=== PATIENT | male | born 1990 | race Caucasian/White ===

== ENCOUNTER 2023-10-30 21:16 | Emergency (ER) | payer OTHER ==
[~2023-10-30] VITALS: Ht 175.3 cm; Wt 85.0 kg
[2023-10-30] MEDS ORDERED: ONDANSETRON 4MG ORAL DISINTEGRATING TAB PO ONE (23:45)
[2023-10-30] MEDS ORDERED: ACETAMINOPHEN 325 MG TAB PO ONE (23:45)
[2023-10-30] MEDS ORDERED: ONDA4TAB6 PO (23:50)
[2023-10-31 00:37] VITALS: BP 123/59; TEMP 97.8; O2SAT 98
== END 2023-10-31 00:44 | disposition home or self-care (01) ==
LOC: M ED 21:16
DX: S06.0X0A Concussion without loss of consciousness, initial encounter (principal); S00.03XA Contusion of scalp, initial encounter; W22.8XXA Striking against or struck by other objects, initial encounter; Y92.9 Unspecified place or not applicable; Y93.9 Activity, unspecified; Y99.1 Military activity; Z79.83 Long term (current) use of bisphosphonates